=== PATIENT | female | born 1950 | race Caucasian/White ===

== ENCOUNTER 2024-01-05 11:23 | Emergency (ER) | payer MEDICARE, OTHER, SELFPAY ==
[2024-01-05 11:28] VITALS: BP 125/74; PULSE 80; TEMP 36.4; O2SAT 98; BMI 21.6
--- NOTE | 2024-01-05 11:47 | ED_ITS ---
HPI - Abdominal Pain General Chief Complaint: Abdominal Pain Stated Complaint: ABDOMINAL PAIN Time Seen by Provider: 01/05/24 11:47 Source: patient Mode of arrival: walk-in History of Present Illness HPI narrative: This patient is here with her for complaint of abdominal pain. She says she has been voiding nearly every hour. She does not have pain blood or discomfort. She has no history of kidney stones. She has no fever, rigors, shakes or chills. She has no back or flank pain. Not seen any blood in the urine. She took Azo, [id number]. She has not had past surgical procedures to her abdomen. She had a colonoscopy several years ago and was told it was completely normal and denies any history of diverticular disease. She has a normal bowel movement today. She has not had a fever today. Her pain seems to be a little bit to the left of the midline. She has not had any diarrhea. She has not had any other systemic symptoms today. Related Data Home Medications ?Medication ?Instructions ?Recorded ?Confirmed bupropion HCl 300 mg 24 hr tablet, 300 mg PO QAM 01/05/24 01/05/24 extended release minocycline 50 mg capsule 50 mg PO DAILY 01/05/24 01/05/24 thyroid (pork) 120 mg tablet 120 mg PO QAM 01/05/24 01/05/24 ([place] [facility]roid) trazodone 150 mg tablet 150 mg PO DAILY 01/05/24 01/05/24 Allergies Allergy/AdvReac Type Severity Reaction Status Date / Time latex Allergy Severe Blister Verified 01/05/24 11:33 novocaine Allergy Severe Hives Uncoded 01/05/24 11:35 Exam Narrative Exam Narrative: Awake alert pleasant moves about comfortably. She is afebrile and has not taken antipyretic medication today. Examination abdomen shows is not distended. There is no hepatosplenomegaly. There is no pulsatile masses. There is no guarding rebound rigidity or peritoneal findings. There is good bowel sounds in all quadrants but she does have tenderness palpation in the left lower quadrant that is greater than the discomfort in the suprapubic area. There is no tenderness at McBurney's point Stapleton sign is negative. Constitutional Vital Signs, click to edit/add: Last Vital Signs Temp 97.6 F 01/05/24 11:28 Pulse 80 01/05/24 11:28 Resp 16 01/05/24 11:28 BP 125/74 01/05/24 11:28 Pulse Ox 98 01/05/24 11:28 O2 Del Method Room Air 01/05/24 11:28 Course Vital Signs Vital signs: Vital Signs Temperature 97.6 F 01/05/24 11:28 Pulse Rate 80 01/05/24 11:28 Respiratory Rate 16 01/05/24 11:28 Blood Pressure 125/74 01/05/24 11:28 Pulse Oximetry 98 01/05/24 11:28 Oxygen Delivery Method Room Air 01/05/24 11:28 Temperature 97.6 F 01/05/24 11:28 Pulse Rate 80 01/05/24 11:28 Respiratory Rate 16 01/05/24 11:28 Blood Pressure 125/74 01/05/24 11:28 Pulse Oximetry 98 01/05/24 11:28 Oxygen Delivery Method Room Air 01/05/24 11:28 MDM - Abdominal Pain MDM Narrative Medical decision making narrative: This patient presents with urinary symptomatology and findings consistent with diverticulitis. A CT scan confirmed that with no complications or perforation. This was discussed extensively with her and her . Clear fluid diet was advised antibiotic therapy immediately and she must follow-up with her primary care doctor by Saturday. If she worsens she should into the emergency room Lab Data Labs: Lab Results 01/05/24 01/05/24 Range/Units 11:38 11:55 WBC 6.7 (4.0-11.0) 10^3/uL RBC 4.11 L (4.20-5.40) 10^6/uL Hgb 12.5 (12.0-16.0) g/dL Hct 37.9 (36.0-48.0) % MCV 92.2 (81.0-99.0) fL MCH 30.4 (26.7-34.0) pg MCHC 33.0 (29.9-35.2) g/dL RDW 13.2 (11.0-15.0) % Plt Count 229 (150-450) 10^3/uL MPV 9.4 L (9.5-13.5) fL Neut % (Auto) 69.4 (43.0-75.0) % Lymph % (Auto) 19.9 L (20.5-60.0) % Gila % (Auto) 8.2 (1.7-12.0) % Eos % (Auto) 1.3 (0.9-7.0) % Baso % (Auto) 0.9 (0.2-2.0) % Neut # (Auto) 4.6 (1.4-6.5) 10^3/uL Lymph # (Auto) 1.3 (1.2-3.8) 10^3/uL Gila # (Auto) 0.6 (0.3-0.8) 10^3/uL Eos # (Auto) 0.1 (0.0-0.7) 10^3/uL Baso # (Auto) 0.1 (0.0-0.1) 10^3/uL Abs Immat Gran (auto) 0.02 (0.00-0.03) 10^3/uL Imm/Tot Granulo (auto) 0.3 (0.0-0.5) % Sodium 141 (136-145) mmol/L Potassium 4.0 (3.5-5.1) mmol/L Chloride 104 (98-107) mmol/L Carbon Dioxide 28.7 (21.0-32.0) mmol/L Anion Gap 12.3 BUN 22.0 H (7.0-18.0) mg/dL Creatinine 0.96 (0.55-1.02) mg/dL Est GFR ( Amer) >60 (>=60) Est GFR (Non-Af Amer) 57 L (>=60) BUN/Creatinine Ratio 22.9 Glucose 115 H (74-106) mg/dL Calcium 9.4 (8.5-10.1) mg/dL Urine Color Dk. orange (YELLOW) Urine Clarity Clear (CLEAR) Urine pH Color interference A (5.0-9.0) Ur Specific [place] 1.020 (1.005-1.025) Urine Protein Color interference A (NEG/TRACE) mg/dL Urine Glucose (UA) Color interference A (NEGATIVE) mg/dL Urine Ketones Color interference A (NEGATIVE) mg/dL Urine Occult Blood Color interference A (NEGATIVE) Urine Nitrite Color interference A (NEGATIVE) Urine Bilirubin Color interference A (NEGATIVE) Urine Urobilinogen Color interference A (0.2-1.0) EU/dL Ur Leukocyte Esterase Color interference A (NEGATIVE) Urine RBC None seen (0-2) #/HPF Urine WBC 5-10 A (NONE SEEN) #/HPF Ur Squamous Epith Cells Few A (NONE/RARE) #/LPF Urine Crystals None seen (None Seen) #/HPF Urine Bacteria None seen (NONE SEEN) #/HPF Urine Casts Seen A (NONE SEEN) #/LPF Hyaline Casts Rare Urine Mucus Moderate A (NONE SEEN) Discharge Plan Discharge Stand Alone Forms: Work/School Release, Portal Instructions Chief Complaint: Abdominal Pain Clinical Impression: Diverticulitis Patient Disposition: Home, Self-Care Time of Disposition Decision: 14:26 Prescriptions / Home Meds: No Action bupropion HCl 300 mg tablet extended release 24 hr 300 mg PO QAM minocycline 50 mg capsule 50 mg PO DAILY thyroid (pork) [[place] Thyroid] 120 mg tablet 120 mg PO QAM trazodone 150 mg tablet 150 mg PO DAILY Print Language: [place] Additional Instructions: Flagyl/Cipro/clear fluid Referrals: PRATIBHA OTOOLE [Primary Care Provider] - 1 week
--- NOTE | 2024-01-05 11:49 | CT_ITS ---
[address] [address] Patient Name: IVAN OVIEDO MRN: [id number] date: 1950 Sex: F Assigned Patient Location: ER Current Patient Location: ER Accession/Order Number: [id number] Exam Date: 01/05/2024 12:32 Report Date: 01/05/2024 14:02 At the request of: JANESSA YOUNG Procedure: CT abdomen pelvis w con EXAM: CT abdomen pelvis w con HISTORY: Left lower quadrant pain COMPARISON: CTA chest including the upper abdomen 09/24/2009. TECHNIQUE: CT abdomen pelvis with contrast. Axial scans with reformatted coronal and sagittal images. Individualized dose reduction used for this exam. Contrast: 100 mL Omnipaque 300 FINDINGS: Chest: Minor scarring at the lung bases, previous inflammatory infiltrates. No acute process. ABDOMEN: Liver not completely visualized without focal lesion. Normal fluid-filled gallbladder. No biliary dilatation. Adrenal glands, pancreas, spleen unremarkable. No abdominal ascites or free fluid or inflammation. Normal-size aorta. Normal aortic branch enhancement, more normal venous opacification. Numerous small mesenteric and retroperitoneal lymph nodes noted subcentimeter. Normal renal enhancement without hydronephrosis. Cortical cyst right kidney 12 mm lateral.. Tiny cortical lesion upper left kidney laterally is indeterminate. Pericolonic stranding inflammation around an inflamed diverticulum left lower quadrant consistent with acute diverticulitis. No extraluminal gas, perforation or evidence of abscess. Scattered diverticula elsewhere most prominent pelvic colon without inflammation or fluid. Normal appearance of the small bowel and stomach. Normal appearance of appendix right lower quadrant. Pelvis: Pericolonic diverticulitis distal descending colon. No fluid or inflammation elsewhere. No uterine or adnexal pathology, uterus right of midline. Normal-appearing fluid-filled bladder. MUSCULOSKELETAL: No suspicious bone lesion. CT/CT abdomen pelvis w con IMPRESSION: 1. Acute uncomplicated diverticulitis left lower quadrant without evidence of perforation or abscess. Reference axial series 3 image 79, coronal series 5 image 32. 2. No other acute appearing abnormality. Renal cortical lesions, typical cyst on the right 12 mm and tiny lesion left indeterminate. 3. Extensive colonic diverticulosis in the pelvic colon without evidence of inflammation or diverticulitis. Electronically authenticated by: ALIYA DAHL Date: 01/05/2024 14:02
[2024-01-05 12:01] LABS: Clarity Urine CLEAR (CLEAR); Color Urine DK. ORANGE (YELLOW)
[2024-01-05 12:08] LABS: Basophils Absolute Auto 0.1 10^3/uL (0.0-0.1); Basophils Percent Auto 0.9 % (0.2-2.0); Eosinophils Absolute Auto 0.1 10^3/uL (0.0-0.7); Eosinophils Percent Auto 1.3 % (0.9-7.0); Hematocrit 37.9 % (36.0-48.0); Hemoglobin 12.5 g/dL (12.0-16.0); Immature Granulocytes Abs Auto 0.02 10^3/uL (0.00-0.03); Immature Granulocytes Pct Auto 0.3 % (0.0-0.5); Lymphocytes Absolute Auto 1.3 10^3/uL (1.2-3.8); Lymphocytes Percent Auto 19.9 % (20.5-60.0); Mean Corpuscular Hemoglobin 30.4 pg (26.7-34.0); Mean Corpuscular Volume 92.2 fL (81.0-99.0); Mean Platelet Volume 9.4 fL (9.5-13.5); Monocytes Absolute Auto 0.6 10^3/uL (0.3-0.8); Monocytes Percent Auto 8.2 % (1.7-12.0); Neutrophils Absolute Auto 4.6 10^3/uL (1.4-6.5); Neutrophils Percent Auto 69.4 % (43.0-75.0); Platelet Count 229 10^3/uL (150-450); Red Blood Count 4.11 10^6/uL (4.20-5.40); Red Cell Distribution Width 13.2 % (11.0-15.0); White Blood Count 6.7 10^3/uL (4.0-11.0)
[2024-01-05 12:18] LABS: Bilirubin Urine COLOR INTERFERENCE (NEGATIVE); Blood Urine COLOR INTERFERENCE (NEGATIVE); Glucose Urine UA COLOR INTERFERENCE mg/dL (NEGATIVE); Ketones Urine COLOR INTERFERENCE mg/dL (NEGATIVE); Leukocyte Esterase Urine COLOR INTERFERENCE (NEGATIVE); Nitrite Urine COLOR INTERFERENCE (NEGATIVE); Protein Urine COLOR INTERFERENCE mg/dL (NEG/TRACE); Urobilinogen Urine COLOR INTERFERENCE EU/dL (0.2-1.0); pH Urine COLOR INTERFERENCE (5.0-9.0)
[2024-01-05 12:22] LABS: Bacteria Urine NONE SEEN #/HPF (NONE SEEN); Crystals Seen? None Seen #/HPF (None Seen); Mucus Urine MODERATE (NONE SEEN); RBC Urine NONE SEEN #/HPF (0-2); Squamous Epithelial Cell Urine FEW #/LPF (NONE/RARE)
[2024-01-05 12:23] LABS: Cast Seen? SEEN #/LPF (NONE SEEN); Hyaline Casts Urine RARE
[2024-01-05 12:23] LABS: Anion Gap 12.3; BUN Creatinine Ratio 22.9; Calcium 9.4 mg/dL (8.5-10.1); Carbon Dioxide 28.7 mmol/L (21.0-32.0); Chloride 104 mmol/L (98-107); Estimated GFR (African America >60 (>=60); Estimated GFR (Non-African Ame 57 (>=60); Glucose 115 mg/dL (74-106); Sodium 141 mmol/L (136-145)
[2024-01-05 14:29] VITALS: BP 126/63; PULSE 77; TEMP 36.8; O2SAT 94
== END 2024-01-05 14:34 | disposition home or self-care (01) ==
PROVIDERS: Emergency Provider Emergency Medicine Emergency Medical Services; PCP Family Medicine
DX: K57.92 Diverticulitis of intestine, part unspecified, without perforation or abscess without bleeding (principal)
CPT/HCPCS: 36415; 74177; 80048; 81001; 85025; 99284; Q9967